=== PATIENT | female | born 1985 | race Caucasian/White ===

== ENCOUNTER 2016-04-13 16:11 | Emergency (ER) | payer OTHER ==
[~2016-04-13 16:11] MED LIST: B-12 KIT1000 MCG/1; BIRTH CONTROL PILL; VITAMIN D1000 UNIT PO
== END 2016-04-13 16:16 | disposition home or self-care (01) ==
LOC: SED 16:11
DX: Z04.3 Encounter for examination and observation following other accident (principal)
CPT/HCPCS: 99283